=== PATIENT | female | born 1980 | race Hispanic/Latino ===

== ENCOUNTER 2021-09-02 11:17 | Observation (INO) | payer SELFPAY ==
--- OUTSIDE RECORDS SUMMARY | 2021-09-02 11:20 | XMS REPORT | Continuity of Care Document ---
:1980 Author Organization [facility] t Address [address] [place] [id number] Care Team Providers Name Role Phone Unavailable Unavailable Unavailable Problems This patient has no known problems. Allergies, Adverse Reactions, Alerts This patient has no known allergies or adverse reactions. Medications This patient has no known medications. Procedures This patient has no known procedures. Encounters Start End Encounter Admission Attending Care Care Encounter Source Date/Time Date/Time Type Type Clinicians Facility Department ID 2020-08-27 2020-08-27 Outpatient PRIV PRIV [id number] [id number] [facility] 05:13:00 05:13:00 [id number] Medica l Results This patient has no known results.
[2021-09-02] MEDS ORDERED: ACETAMINOPHEN 500 MG TAB ONE ×2 (14:00→22:01)
[2021-09-02 14:04] LABS: Protime INR 1.01
[2021-09-02 14:06] LABS: Absolute Lymphocytes (CBC) 3.7 K/uL (0.7-4.9); Hematocrit 42.5 % (36.0-45.0); Lymphocytes % 35.3 % (15.3-44.8); MPV 8.3 fL (7.6-11.3); RBC Red Blood Cell Count 4.83 M/uL (3.86-4.86)
--- NOTE | 2021-09-02 14:07 | RAD REPORT ---
EXAM DESCRIPTION: CT - Head Brain Wo Cont - 09/02/2021 1:40 pm CLINICAL HISTORY: Headache COMPARISON: None. TECHNIQUE: Computed axial tomography of the head was obtained. IV contrast was not requested. All CT scans are performed using dose optimization technique as appropriate and may include automated exposure control or mA/KV adjustment according to patient size. FINDINGS: An intracranial bleed is not seen . The ventricles are normal in caliber. No significant hypodense areas within the brain No extra-axial fluid collection is noted. Fluid within the sinuses/ mastoids is not seen. IMPRESSION: No acute intracranial abnormality is seen. If patient's symptoms persist MRI of the bra in would be recommended.
[2021-09-02 14:18] LABS: ALT/SGPT 38 U/L (12-78); AST/SGOT 22 U/L (15-37); Albumin 3.7 g/dL (3.4-5.0); Alkaline Phosphatase 110 U/L (45-117); BUN Blood Urea Nitrogen 12 mg/dL (7-18); Bicarbonate 27 mmol/L (21-32); Bilirubin Direct 0.1 mg/dL (0-0.2); Bilirubin Total 0.6 mg/dL (0.2-1.0); Glucose Level 94 mg/dL (74-106); Magnesium 2.3 mg/dL (1.8-2.4); Potassium 3.7 mmol/L (3.5-5.1); Protein, Total 7.6 g/dL (6.4-8.2); Sodium Level 141 mmol/L (136-145)
[2021-09-02] MEDS ORDERED: ASPIRIN 81 MG CHEWABLE TABLET ONE (14:41)
[2021-09-02] MEDS ORDERED: FOLIC ACID 5 MG/ML VIAL ONE (14:42)
--- NOTE | 2021-09-02 15:09 | RAD REPORT ---
EXAM DESCRIPTION: CTHead angio09/02/2021 2:46 pm CLINICAL HISTORY: Slurred speech/headache COMPARISON: None TECHNIQUE: CT angiogram of the head was obtained. 3D MIPS reconstruction performed. All CT scans are performed using dose optimization technique as appropriate and may include automated exposure control or mA/KV adjustment according to patient size. FINDINGS: The basilar, internal carotid, anterior cerebral, middle cerebral and posterior cerebral a rteries are normal caliber. An aneurysm is not seen. origin of the left posterior cerebral artery A significant stenosis is not noted. IMPRESSION: No significant abnormality is displayed
--- NOTE | 2021-09-02 15:09 | RAD REPORT ---
EXAM DESCRIPTION: Unrulypauline Angio09/02/2021 2:46 pm CLINICAL HISTORY: Slurred speech/headache COMPARISON: None TECHNIQUE: 50 cc Isovue 370 was administered intravenously. 3D MIP reconstruction performed All CT scans are performed using dose optimization technique as appropriate and may include automated exposure control or mA/KV adjustment according to patient size. FINDINGS: The common carotid, internal carotid and external carotid arteries bilaterally are normal caliber. Vertebral arteries are codominant. No dissection seen. No significant stenosis IMPRESSION: Unremarkable exam NASCET criteria used. Mild 0-49% stenosis Moderate 50-69% stenosis Severe 70-99% stenosis
--- NOTE | 2021-09-02 15:30 | ER ---
Nurse's Notes [facility] Name: Moe Ren Age: 41 yrs Sex: Female : 1980 Arrival Date: 09/02/2021 Time: 11:20 Bed 24 Private MD: Diagnosis: Unspecified speech disturbances Presentation: 09/02 11:54 Chief complaint: Patient states: On Tuesday states sharp pain to the back of head and vg1 states was trying to say 'get my perfume out of my purse' but stated the words would not come; states words were slurred; states was able to hear the sentence in head but 'it would come out correctly out of my mouth'. States today similar situation happened again. pt c/o headache and nausea; denies blurred vision or weakness. Coronavirus screen: Vaccine status: Patient reports receiving the 2nd dose of the covid vaccine. Client denies travel out of the [place] in the last 14 days. Ebola Screen: Patient negative for fever greater than or equal to 101.5 degrees Fahrenheit, and additional compatible Ebola Virus Disease symptoms. Initial Sepsis Screen: Does the patient meet any 2 criteria? No. Patient's initial sepsis screen is negative. Does the patient have a suspected source of infection? No. Patient's initial sepsis screen is negative. Risk Assessment: Do you want to hurt yourself or someone else? Patient reports no desire to harm self or others. Onset of symptoms was August 30, 2021. 11:54 Method Of Arrival: Ambulatory vg1 11:54 Acuity: SANTOSH 3 vg1 Triage Assessment: 11:59 General: Appears in no apparent distress. comfortable, Behavior is calm, cooperative. vg1 Pain: Complains of pain in head Pain currently is 5 out of 10 on a pain scale. 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 - Social history:: Smoking status: Patient reports the use of cigarette tobacco products, denies chronic smoking, but will smoke occasionally. Screenin:19 Abuse screen: Denies threats or abuse. Denies injuries from another. Nutritional ab2 screening: No deficits noted. Tuberculosis screening: No symptoms or risk factors identified. Fall Risk None identified. Assessment: 15:18 General: Appears in no apparent distress. uncomfortable, Behavior is calm, cooperative, ab2 appropriate for age. Pain: Complains of pain in neck. Neuro: Level of Consciousness is awake, alert, obeys commands, Oriented to person, place, time, situation, Appropriate for age Hot Blaster are equal bilaterally Moves all extremities. Gait is steady, Speech is normal, Facial symmetry appears normal, Intact. Cardiovascular: Reports lightheadedness, Denies chest pain, shortness of breath, Heart tones S1 S2 present Patient's skin is warm and dry. Rhythm is sinus rhythm. Respiratory: Airway is patent Respiratory effort is even, unlabored, Respiratory pattern is regular, symmetrical, Breath sounds are clear bilaterally. GI: No deficits noted. : No deficits noted. No signs and/or symptoms were reported regarding the genitourinary system. EENT: No deficits noted. No signs and/or symptoms were reported regarding the EENT system. Derm: Skin is intact, Skin temperature is warm. 19:25 Reassessment: Patient appears in no apparent distress at this time. Patient is alert, lp1 oriented x 3, equal unlabored respirations, skin warm/dry/pink. Patient aware of pending admission; Given sandwich and juice per request at this time. Neuro: Level of Consciousness is awake, alert, obeys commands, Gait is steady, Speech is normal, Intact. Respiratory: Respiratory effort is even, unlabored. Derm: Skin is pink, warm \T\ dry. Musculoskeletal: No deficits noted. Vital Signs: 11:54 BP 144 / 89; Pulse 74; Resp 16; Temp 97.5; Pulse Ox 99% ; Weight 80.74 kg; Height 5 ft. vg1 5 in. (165.10 cm); Pain 5/10; 15:15 BP 116 / 72; Pulse 63; Resp 16; Pulse Ox 100% on R/A; ab2 19:20 BP 134 / 74; Pulse 61; Resp 16; Temp 98(O); Pulse Ox 99% on R/A; lp1 11:54 Body Mass Index 29.62 (80.74 kg, 165.10 cm) vg1 NIH Stroke Scale Scores: 12:00 NIHSS Score: 0 vg1 13:50 NIHSS Score: 0 cp ED Course: 11:20 Patient arrived in ED. as 11:59 Triage completed. vg1 11:59 Arm band placed on. vg1 12:18 Iain Romo PA is PHCP. cp 12:18 Iain Solomon MD is Attending Physician. cp 13:33 Kingston Xiong is Primary Nurse. ab2 13:41 CT Head Brain wo Cont In Process Unspecified. EDMS 14:48 CT Neck Angio In Process Unspecified. EDMS 14:48 Head angio In Process Unspecified. EDMS 15:19 No provider procedures requiring assistance completed. Inserted saline lock: 20 gauge ab2 in right antecubital area, using aseptic technique. Blood collected. 15:20 Patient has correct armband on for positive identification. Bed in low position. Call ab2 light in reach. Side rails up X2. 15:28 King Trinh is Hospitalizing Provider. cp 19:25 COVID swab sent to lab. lp1 20:07 Patient admitted, IV remains in place. lp1 Administered Medications: 13:57 Drug: Tylenol 1000 mg Route: PO; ab2 14:52 Drug: Aspirin Chewable Tablet 81 mg Route: PO; ab2 14:52 Drug: foLIC Acid 1 mg Route: IVPB; Site: right antecubital; ab2 Outcome: 15:29 Decision to Hospitalize by Provider. cp 20:07 Admitted to ER Hold. [facility]. lp1 20:07 Condition: stable 20:07 Instructed on the need for admit. 04 11:57 Patient left the ED. jd3 NIH Stroke Scale - NIH Stroke Score Date: 09/02/2021 Time: 12:00 Total Score = 0 1a. Level of Consciousness (LOC) - 0(Alert) 1b. Level of Consciousness (LOC) (Month \T\ Age) - 0(Both) 1c. LOC Commands (Open \T\ Closes Eyes/Buckle Sewer Machine) - 0(Both) 2. Best Gaze (Lateral Gaze Paresis) - 0(Normal) 3. Visual Field Loss - 0(No visual loss) 4. Facial Palsy - 0(Normal) 5a. Left Arm: Motor (10-second hold) - 0(No drift) 5b. Right Arm: Motor (10-second hold) - 0(No drift) 6a. Left Leg: Motor (5-second hold - always test supine) - 0(No drift) 6b. Right Leg: Motor (5-second hold - always test supine) - 0(No drift) 7. Limb Ataxia (finger/nose \T\ heel/eller - test with eyes open) - 0(Absent) 8. Sensory Loss (pinprick arms/legs/face) - 0(Normal) 9. Best Language: Aphasia (description/naming/reading) - 0(No aphasia) 10. Dysarthria (speech clarity - read or repeat words) - 0(Normal) 11. Extinction and Inattention (visual/tactile/auditory/spatial/personal) - 0(No abnormality) Initials: vg1 NIH Stroke Scale - NIH Stroke Score Date: 09/02/2021 Time: 13:50 Total Score = 0 1a. Level of Consciousness (LOC) - 0(Alert) 1b. Level of Consciousness (LOC) (Month \T\ Age) - 0(Both) 1c. LOC Commands (Open \T\ Closes Eyes/Buckle Sewer Machine) - 0(Both) 2. Best Gaze (Lateral Gaze Paresis) - 0(Normal) 3. Visual Field Loss - 0(No visual loss) 4. Facial Palsy - 0(Normal) 5a. Left Arm: Motor (10-second hold) - 0(No drift) 5b. Right Arm: Motor (10-second hold) - 0(No drift) 6a. Left Leg: Motor (5-second hold - always test supine) - 0(No drift) 6b. Right Leg: Motor (5-second hold - always test supine) - 0(No drift) 7. Limb Ataxia (finger/nose \T\ heel/eller - test with eyes open) - 0(Absent) 8. Sensory Loss (pinprick arms/legs/face) - 0(Normal) 9. Best Language: Aphasia (description/naming/reading) - 0(No aphasia) 10. Dysarthria (speech clarity - read or repeat words) - 0(Normal) 11. Extinction and Inattention (visual/tactile/auditory/spatial/personal) - 0(No abnormality) Initials: cp Signatures: Dispatcher [employer] EDDanica Guo Laura, RN RN lp1 Iain Romo PA PA cp Davies, Jonathon, RN RN jViry Rivera RN RN vg1 Kingston Xiong
--- NOTE | 2021-09-02 15:30 | EDPHYS ---
Physician Documentation [facility] Name: Moe Ren Age: 41 yrs Sex: Female : 1980 Arrival Date: 09/02/2021 Time: 11:20 Bed 24 Private MD: FLOYD Physician Iain Solomon HPI: 09/02 13:40 This 41 yrs old Female presents to ER via Ambulatory with complaints of cp Dizziness, Blood Pressure Problem. 13:40 The patient's problem is reported as dysphasia, slurred speech, incoherent speech. cp 13:40 Onset: The symptoms/episode began/occurred this past weekend on Tuesday. cp 13:40 Duration: The episodes are intermittent. Patient's baseline: Neuro: alert and fully cp oriented, Motor: no deficits, Ambulation: walks without assistance, Speech: normal. 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 - Social history:: Smoking status: Patient reports the use of cigarette tobacco products, denies chronic smoking, but will smoke occasionally. ROS: 13:45 Constitutional: Negative for body aches, chills, fever, poor PO intake. cp 13:45 Eyes: Negative for injury, pain, redness, and discharge. cp 13:45 ENT: Negative for drainage from ear(s), ear pain, sore throat, difficulty swallowing, difficulty handling secretions. 13:45 Cardiovascular: Negative for chest pain, palpitations. 13:45 Respiratory: Negative for cough, shortness of breath, wheezing. 13:45 Abdomen/GI: Negative for abdominal pain, nausea, vomiting, and diarrhea. 13:45 : Negative for urinary symptoms. 13:45 Neuro: Positive for headache, speech changes, Negative for altered mental status, syncope, weakness. 13:45 All other systems are negative. Exam: 13:50 Constitutional: The patient appears in no acute distress, alert, awake, cp non-diaphoretic, non-toxic, well developed, well nourished. 13:50 Head/Face: Normocephalic, atraumatic. cp 13:50 Eyes: Periorbital structures: appear normal, Pupils: equal, round, and reactive to light and accomodation, Extraocular movements: intact throughout, Conjunctiva: normal, no exudate, no injection, Sclera: no appreciated abnormality, Lids and lashes: appear normal, bilaterally. 13:50 ENT: External ear(s): are unremarkable, Nose: is normal, Mouth: Lips: moist, Oral mucosa: pink and intact, moist, Posterior pharynx: Airway: no evidence of obstruction, patent. 13:50 Neck: ROM/movement: is normal, is supple, without pain, no range of motions limitations. 13:50 Chest/axilla: Inspection: normal. 13:50 Cardiovascular: Rate: normal, Rhythm: regular, Edema: is not appreciated, JVD: is not appreciated. 13:50 Respiratory: the patient does not display signs of respiratory distress, Respirations: normal, no use of accessory muscles, no retractions, labored breathing, is not present, Breath sounds: are clear throughout, no decreased breath sounds, no stridor, no wheezing. 13:50 Abdomen/GI: Exam negative for discomfort, distension, guarding, Inspection: abdomen appears normal. 13:50 Neuro: Orientation: to person, place \\T\\ time. Mentation: is normal, Cerebellar function: is grossly normal, Motor: moves all fours, strength is normal, Sensation: is normal. 14:20 Radiologist reports: no acute findings cp Vital Signs: 11:54 BP 144 / 89; Pulse 74; Resp 16; Temp 97.5; Pulse Ox 99% ; Weight 80.74 kg; Height 5 ft. vg1 5 in. (165.10 cm); Pain 5/10; 15:15 BP 116 / 72; Pulse 63; Resp 16; Pulse Ox 100% on R/A; ab2 19:20 BP 134 / 74; Pulse 61; Resp 16; Temp 98(O); Pulse Ox 99% on R/A; lp1 11:54 Body Mass Index 29.62 (80.74 kg, 165.10 cm) vg1 NIH Stroke Scale Scores: 12:00 NIHSS Score: 0 vg1 13:50 NIHSS Score: 0 cp MDM: 13:07 Patient medically screened. cp 09/02 13:29 Order name: Basic Metabolic Panel; Complete Time: 14:28 cp 09/02 14:28 Interpretation: Normal except: CL 109. cp 09/02 13:29 Order name: CBC with Diff; Complete Time: 14:09 cp 09/02 14:09 Interpretation: Normal except: MCV 88.0; EOSINOPHIL % 5.0. cp 09/02 13:29 Order name: LFT's; Complete Time: 14:28 cp 09/02 14:28 Interpretation: Normal except: GLOB 3.9; A/G 0.9. cp 09/02 13:29 Order name: Magnesium; Complete Time: 14:28 cp 09/02 13:29 Order name: PT-INR; Complete Time: 14:09 cp 09/02 17:38 Order name: COVID-19 SARS RT PCR (Document "Date of Onset" if Symptomatic) bd 09/02 13:30 Order name: CT Head Brain wo Cont; Complete Time: 14:09 cp 09/02 14:09 Interpretation: Report reviewed. cp 09/03 03:43 Order name: CBC with Automated Diff EDGA 09/03 03:53 Order name: Sedimentation Rate, [place]gren EDMS 09/03 04:00 Order name: Basic Metabolic Panel EDMS 09/03 04:00 Order name: Lipid Profile EDMS 09/03 04:00 Order name: Thyroid Stimulating Hormone EDMS 09/03 04:16 Order name: T4 Free EDGA 09/02 13:29 Order name: EKG; Complete Time: 13:30 cp 09/02 13:29 Order name: Cardiac monitoring; Complete Time: 13:55 cp 09/02 13:29 Order name: EKG - Nurse/Tech; Complete Time: 13:55 cp 09/02 13:29 Order name: IV Saline Lock; Complete Time: 13:55 cp 09/02 13:29 Order name: Labs collected and sent; Complete Time: 13:55 cp 09/02 13:29 Order name: O2 Per Protocol; Complete Time: 13:55 cp 09/02 13:29 Order name: O2 Sat Monitoring; Complete Time: 13:55 cp 09/02 14:32 Order name: CT Neck Angio; Complete Time: 15:13 cp 09/02 15:13 Interpretation: Report reviewed. cp 09/02 14:36 Order name: Head angio; Complete Time: 15:13 EDGA 09/02 15:13 Interpretation: Report reviewed. 09/03 09:20 Order name: MRI EDMS 09/03 09:21 Order name: MRI EDMS 09/03 09:22 Order name: MRI EDMS Administered Medications: 13:57 Drug: Tylenol 1000 mg Route: PO; ab2 14:52 Drug: Aspirin Chewable Tablet 81 mg Route: PO; ab2 14:52 Drug: foLIC Acid 1 mg Route: IVPB; Site: right antecubital; ab2 Disposition: 09/04 07:53 Co-signature as Attending Physician, Iain Solomon MD I agree with the assessment and esequiel plan of care. Disposition Summary: 09/02/21 15:29 Hospitalization Ordered Hospitalization Status: Observation cp Provider: King Trinh cp Condition: Stable cp Problem: new cp Symptoms: are resolved cp Bed/Room Type: Standard cp Location: [facility] ER HOLD(09/02/21 21:54) 1 Room Assignment: ERHOLD-(09/02/21 21:54) eb1 Diagnosis - Unspecified speech disturbances cp Discharge Instructions: - Discharge Summary Sheet jd3 Forms: - Medication Reconciliation Form cp - SBAR form cp - Work release form jd3 NIH Stroke Scale - NIH Stroke Score Date: 09/02/2021 Time: 12:00 Total Score = 0 1a. Level of Consciousness (LOC) - 0(Alert) 1b. Level of Consciousness (LOC) (Month \\T\\ Age) - 0(Both) 1c. LOC Commands (Open \\T\\ Closes Eyes/Solar Panel Technician) - 0(Both) 2. Best Gaze (Lateral Gaze Paresis) - 0(Normal) 3. Visual Field Loss - 0(No visual loss) 4. Facial Palsy - 0(Normal) 5a. Left Arm: Motor (10-second hold) - 0(No drift) 5b. Right Arm: Motor (10-second hold) - 0(No drift) 6a. Left Leg: Motor (5-second hold - always test supine) - 0(No drift) 6b. Right Leg: Motor (5-second hold - always test supine) - 0(No drift) 7. Limb Ataxia (finger/nose \\T\\ heel/eller - test with eyes open) - 0(Absent) 8. Sensory Loss (pinprick arms/legs/face) - 0(Normal) 9. Best Language: Aphasia (description/naming/reading) - 0(No aphasia) 10. Dysarthria (speech clarity - read or repeat words) - 0(Normal) 11. Extinction and Inattention (visual/tactile/auditory/spatial/personal) - 0(No abnormality) Initials: vg1 NIH Stroke Scale - NIH Stroke Score Date: 09/02/2021 Time: 13:50 Total Score = 0 1a. Level of Consciousness (LOC) - 0(Alert) 1b. Level of Consciousness (LOC) (Month \\T\\ Age) - 0(Both) 1c. LOC Commands (Open \\T\\ Closes Eyes/Solar Panel Technician) - 0(Both) 2. Best Gaze (Lateral Gaze Paresis) - 0(Normal) 3. Visual Field Loss - 0(No visual loss) 4. Facial Palsy - 0(Normal) 5a. Left Arm: Motor (10-second hold) - 0(No drift) 5b. Right Arm: Motor (10-second hold) - 0(No drift) 6a. Left Leg: Motor (5-second hold - always test supine) - 0(No drift) 6b. Right Leg: Motor (5-second hold - always test supine) - 0(No drift) 7. Limb Ataxia (finger/nose \\T\\ heel/eller - test with eyes open) - 0(Absent) 8. Sensory Loss (pinprick arms/legs/face) - 0(Normal) 9. Best Language: Aphasia (description/naming/reading) - 0(No aphasia) 10. Dysarthria (speech clarity - read or repeat words) - 0(Normal) 11. Extinction and Inattention (visual/tactile/auditory/spatial/personal) - 0(No abnormality) Initials: cp Signatures: Dispatcher [employer] EDGA Iain Solomon MD MD cha Page, Corey, PA PA cp Luzmaria Hughes, RN RN eb1 Viry Carson, RN RN vg1 Kingston Xiong Corrections: (The following items were deleted from the chart) 09/02 14:34 14:33 Head Brain W Cont+CT.RAD.MARLEYZ ordered. EDGA EDGA : 15:29 Telemetry/MedSurg (observation) cp eb1 21:54 15:29 cp eb1 :54 21:54 205 eb eb1
--- NOTE | 2021-09-02 17:19 | P.HP ---
Certification for Inpatient Patient admitted to: Observation With expected LOS: <2 Midnights Practitioner: I am a practitioner with admitting privileges, knowledge of patient current condition, hospital course, and medical plan of care. Services: Services provided to patient in accordance with Admission requirements found in Title 42 Section 412.3 of the Code of Federal Regulations Patient History Date of Service: 09/02/21 Reason for admission: Transient inability to speak History of Present Illness: 41-year-old woman, non-smoker, no other known past medical history presented to the emergency department due to intermittent difficulty with verbalizing words. Symptoms started 3 days ago, had 2 episodes where she knew what she wanted to say but she could not say it. Symptoms preceded by a bout of headache. Patient stated she was stressed out before the onset of her symptoms. She also reports an episode of vertigo prior to the aphasia. Work-up in the emergency department is unremarkable. CT head, CTA head and neck all unremarkable. Patient's symptoms could be related to TIA. Neurology was contacted by the ED provider who recommended hospitalization for an MRI and other risk factor assessment. Allergies No Known Allergies Allergy (Unverified 03/01/17 05:51) - Past Medical/Surgical History -: Anemia -: Uterine cancer -: Hysterectomy - Family History Father -: Stroke - Social History Smoking Status: Current some day smoker Alcohol use: No CD- Drugs: No Place of Residence: Home Review of Systems Other: Except as documented, all other systems reviewed and negative. Physical Examination - Physical Exam General: Alert, In no apparent distress, Oriented x3 HEENT: Atraumatic, Normocephalic, PERRLA, Mucous membr. moist/pink, EOMI, Sclera e nonicteric Neck: Supple, 2+ carotid pulse no bruit, JVD not distended, No Thyromegaly Respiratory: Clear to auscultation bilaterally, Normal air movement Cardiovascular: No edema, Regular rate/rhythm, Normal S1 S2, No murmurs Capillary refill: <2 Seconds Gastrointestinal: Normal bowel sounds, Soft and benign, Non-distended, No tenderness Musculoskeletal: No swelling, No tenderness Integumentary: No rashes, No erythema, No cyanosis Neurological: Normal speech, Normal strength at 5/5 x4 extr, Cranial nerves 3-12 intact Lymphatics: No axilla or inguinal lymphadenopathy - Studies Laboratory Data (last 24 hrs) 09/02/21 13:45: PT 11.1, INR 1.01 09/02/21 13:45: WBC 10.4, Hgb 14.8, Hct 42.5, Plt Count 279 09/02/21 13:45: Sodium 141, Potassium 3.7, BUN 12, Creatinine 0.60, Glucose 94, Magnesium 2.3, Total Bilirubin 0.6, AST 22, ALT 38, Alkaline Phosphatase 110 Assessment and Plan - Problems (Diagnosis) (1) TIA (transient ischemic attack) Current Visit: Yes Status: Acute (2) Vertigo Current Visit: Yes Status: Acute - Plan Place under observation Start aspirin Check lipid profile Obtain MRI of the brain. Obtain echocardiogram. Consult to neurology Speech therapy consult. - Advance Directives Does patient have a Living Will: No Does patient have a Durable POA for Healthcare: No
[2021-09-02] MEDS ORDERED: NA CHLORIDE 0.9% 1,000 ML IV SCH (20:47)
[2021-09-02] MEDS ORDERED: NA CHLORIDE 0.9% 1,000 ML ONE (21:11)
[2021-09-02] MEDS ORDERED: ACETAMINOPHEN 500 MG TAB PO PRN (21:51)
[2021-09-02 22:26] VITALS: BMI 29.2
[2021-09-03 03:39] LABS: Hematocrit 38.7 % (36.0-45.0); Lymphocytes % 40.8 % (15.3-44.8); MPV 8.4 fL (7.6-11.3); RBC Red Blood Cell Count 4.42 M/uL (3.86-4.86)
[2021-09-03 03:58] LABS: BUN Blood Urea Nitrogen 12 mg/dL (7-18); Bicarbonate 25 mmol/L (21-32); Glucose Level 129 mg/dL (74-106); HDL Cholesterol 35 mg/dL (40-60); LDL Cholesterol, Calculated 38 mg/dL (<130); Potassium 3.5 mmol/L (3.5-5.1); Sodium Level 141 mmol/L (136-145)
[2021-09-03 04:43] VITALS: TEMP 98.1
[2021-09-03 08:21] VITALS: BP 128/66; O2SAT 99
[2021-09-03] MEDS ORDERED: ASPIRIN EC 81 MG TAB PO ONE (08:44)
[2021-09-03] MEDS ORDERED: POTASSIUM CL SA 10 MEQ TAB PO ONE ×2 (08:45→09:00)
[2021-09-03] MEDS ORDERED: ASPIRIN EC 81 MG TAB PO SCH (09:00)
--- NOTE | 2021-09-03 09:19 | RAD REPORT ---
EXAM DESCRIPTION: MRI - Brain W/Wo Cont - 09/03/2021 8:10 am CLINICAL HISTORY: TIA Headache, drowsiness, CVA symptomology COMPARISON: MRA Head Wo Cont dated 09/03/2021 TECHNIQUE: Multi-sequence, multiplanar MR imaging of the brain was performed with contrast. FINDINGS: No intracranial hemorrhage, hydrocephalus, or extra-axial fluid collection. No edema or sh ift of midline structures. No intracranial mass. DWI is negative for acute CVA. The midline structures are normally formed. Mastoid air cells and paranasal sinuses are clear. Post-contrast images show no abnormal enhancement to suggest tumor or infection. IMPRESSION: No acute or concerning intracranial abnormalities. No pathologic post-contrast enhancement suspected.
--- NOTE | 2021-09-03 09:21 | RAD REPORT ---
EXAM DESCRIPTION: MRI - MRA Head Wo Cont - 09/03/2021 8:10 am CLINICAL HISTORY: TIA CVA COMPARISON: Head angio dated 09/02/2021 FINDINGS: 3D noncontrast [id number] MR angiography of the [place]inson of [place] was performed. No aneurysm, flow-limiting stenosis or vascular malformation is seen. Forward flow seen in codominant vertebral arteries. The visualized dural venous sinuses appear patent. IMPRESSION: No significant flow abnormality of the [place] of [place] is identified.
--- NOTE | 2021-09-03 09:22 | RAD REPORT ---
EXAM DESCRIPTION: MRI - MRA Neck W/Wo Cont - 09/03/2021 8:10 am CLINICAL HISTORY: TIA Headache, drowsiness, CVA symptomology COMPARISON: No comparisons FINDINGS: Contrast enhance 2D [id number] MR angiography of the neck vessels was performed. A left aortic arch is noted. Normal great vessel origin pattern is seen. Both subclavian arteries and common carotid arteries are widely patent. Both internal carotid arterie s show no significant stenosis. Antegrade flow is seen codominant vertebral arteries. IMPRESSION: No significant flow abnormality of the neck vessels.
--- NOTE | 2021-09-03 11:16 | P.DS ---
Admission Date: 09/02/21 Discharge Date: 09/03/21 Disposition: D/C Home Medical Screening Onl Discharge Condition: GOOD Reason for Admission: Transient inability to speak - Problems (1) TIA (transient ischemic attack) Status: Acute (2) Vertigo Status: Acute Brief History of Present Illness: 41-year-old woman, non-smoker, no other known past medical history presented to the emergency department due to intermittent difficulty with verbalizing words. Symptoms started 3 days ago, had 2 episodes where she knew what she wanted to say but she could not say it. Symptoms preceded by a bout of headache. Patient stated she was stressed out before the onset of her symptoms. She also reports an episode of vertigo prior to the aphasia. Work-up in the emergency department is unremarkable. CT head, CTA head and neck all unremarkable. Patient's symptoms could be related to TIA. Neurology was contacted by the ED provider who recommended hospitalization for an MRI and other risk factor assessment. Hospital Course: Patient placed under observation on the medical floor. MRI of the brain was done which was negative for acute CVA. MRA of head and neck also unremarkable. Patient's symptoms could be related to TIA. Lipid profile showed normal LDL and cholesterol level but triglyceride elevated. Blood pressure within normal limits. Patient deemed stable for discharge. She is discharged with baby aspirin daily and Tricor for hypertriglyceridemia. Vital Signs/Physical Exam: Temp Pulse Resp BP Pulse Ox 98.1 F 58 16 128/66 97 09/03/21 04:00 09/03/21 08:15 09/03/21 08:15 09/03/21 08:15 09/03/21 08:15 General: Alert, In no apparent distress, Oriented x3 HEENT: Mucous membr. moist/pink Neck: JVD not distended Respiratory: Clear to auscultation bilaterally, Crackles/rales Cardiovascular: No edema, Regular rate/rhythm Gastrointestinal: Soft and benign, Non-distended Musculoskeletal: No swelling Integumentary: No rashes Neurological: Normal speech, Normal strength at 5/5 x4 extr Laboratory Data at Discharge: WBC 9.8 K/uL (4.3-10.9) 09/03/21 03:05 Hgb 13.6 g/dL (12.0-15.0) 09/03/21 03:05 Hct 38.7 % (36.0-45.0) 09/03/21 03:05 Plt Count 266 K/uL (152-406) 09/03/21 03:05 PT 11.1 SECONDS (9.5-12.5) 09/02/21 13:45 INR 1.01 09/02/21 13:45 Sodium 141 mmol/L (136-145) 09/03/21 03:05 Potassium 3.5 mmol/L (3.5-5.1) 09/03/21 03:05 BUN 12 mg/dL (7-18) 09/03/21 03:05 Creatinine 0.62 mg/dL (0.55-1.3) 09/03/21 03:05 Glucose 129 mg/dL (74-106) H 09/03/21 03:05 Magnesium 2.3 mg/dL (1.8-2.4) 09/02/21 13:45 Total Bilirubin 0.6 mg/dL (0.2-1.0) 09/02/21 13:45 AST 22 U/L (15-37) 09/02/21 13:45 ALT 38 U/L (12-78) 09/02/21 13:45 Alkaline Phosphatase 110 U/L (45-117) 09/02/21 13:45 Triglycerides 274 mg/dL (<150) H 09/03/21 03:05 Cholesterol 128 mg/dL (<200) 09/03/21 03:05 HDL Cholesterol 35 mg/dL (40-60) L 09/03/21 03:05 Cholesterol/HDL Ratio 3.66 09/03/21 03:05 Home Medications: Ascorbate Calcium [Vitamin C] 500 mg PO DAILY 09/02/21 Ferrous Sulfate [Iron] 325 mg PO DAILY 09/02/21 Ibuprofen 2 tab PO DAILY 09/02/21 Aspirin [Aspirin EC 81 MG] 81 mg PO DAILY #30 tablet. 09/03/21 Fenofibrate [Tricor] 145 mg PO DAILY #30 tab 09/03/21 New Medications: Aspirin [Aspirin EC 81 MG] 81 mg PO DAILY #30 tablet. Fenofibrate [Tricor] 145 mg PO DAILY #30 tab Followup: NONE,NONE [Primary Care Provider] -
== END 2021-09-03 11:45 | disposition home or self-care (01) ==
LOC: ER 11:17 → ERHOLD 17:09
PROVIDERS: ADMIT Internal Medicine; ATTEND Internal Medicine
DX: G45.9 Transient cerebral ischemic attack, unspecified (principal); R42 Dizziness and giddiness; E78.1 Pure hyperglyceridemia; D64.9 Anemia, unspecified; R29.700 NIHSS score 0; F17.210 Nicotine dependence, cigarettes, uncomplicated; Z20.822 Contact with and (suspected) exposure to COVID-19; Z85.42 Personal history of malignant neoplasm of other parts of uterus; Z90.710 Acquired absence of both cervix and uterus; Z82.3 Family history of stroke
CPT/HCPCS: 36415; 70450; 70496; 70498; 70544; 70549; 70553; 80048; 80061; 80076; 83735; 84439; 84443; 85025; 85610; 85652; 93005; 96374; 99285; A9577; G0378; J7030; Q9967; U0003

== ENCOUNTER 2023-10-18 11:08 | Emergency (ER) | payer SELFPAY ==
[2023-10-18] MEDS ORDERED: NA CHLORIDE 0.9% 1,000 ML ONE (11:50)
[2023-10-18] MEDS ORDERED: ASPIRIN 81 MG CHEWABLE TABLET ONE (11:50)
[2023-10-18 11:52] LABS: Absolute Eosinophils 0.3 K/uL (0-0.5); Absolute Lymphocytes (CBC) 3.2 K/uL (0.7-4.9); Absolute Monocytes 0.6 K/uL (0.1-1.3); Absolute Neutrophil 5.5 K/uL (1.8-8.0); Basophils % 0.5 % (0-1.3); Eosinophils % 2.7 % (0-4.4); Hematocrit 41.2 % (36.0-45.0); Hemoglobin 13.7 g/dL (12.0-15.0); Lymphocytes % 32.9 % (15.3-44.8); MCH 29.8 pg (27.0-35.0); MCHC 33.3 g/dL (32.0-36.0); MCV 89.3 fL (80-100); MPV 8.5 fL (7.6-11.3); Monocytes % 6.6 % (3.3-12.3); Neutrophils % 57.3 % (41.7-73.7); Platelets 287 thou/uL (152-406); RBC Red Blood Cell Count 4.61 M/uL (3.86-4.86); Red Cell Distribution Width 12.9 % (12.1-15.2)
[2023-10-18 11:56] LABS: PT Prothrombin Time 10.8 SECONDS (9.5-12.5); Protime INR 0.98
[2023-10-18 12:11] LABS: Anion Gap 9.5 mEq/L (5.0-15.0); Potassium 3.5 mEq/L (3.5-5.1); Troponin High Sensitivity 4.1 pg/mL (<58.9)
--- NOTE | 2023-10-18 12:39 | RAD REPORT ---
EXAM DESCRIPTION: RADChest Single View10/18/2023 12:21 pm CLINICAL HISTORY: CHEST PAIN COMPARISON: Chest Single View dated 12/02/2022 TECHNIQUE: Portable AP view of the chest. FINDINGS: The lungs are clear. No pneumothorax or effusion. The cardiomediastinal contours are unre markable. IMPRESSION: No acute cardiopulmonary process.
--- NOTE | 2023-10-18 13:19 | ER ---
Nurse's Notes [facility] Name: Moe Ren Age: 43 yrs Sex: Female : 1980 Arrival Date: 10/18/2023 Time: 11:08 Bed DX2 Private MD: Diagnosis: Chest pain, unspecified Presentation: 10/17 11:18 Chief complaint: Patient states: "I started having right sided CP yesterday evening. It mb9 hasn't gone away and I feel slightly SOB. It's like a throbbing/stabbing pain." EKG done in triage. Coronavirus screen: At this time, the client does not indicate any symptoms associated with coronavirus-19. Ebola Screen: No symptoms or risks identified at this time. Initial Sepsis Screen: Does the patient meet any 2 criteria? No. Patient's initial sepsis screen is negative. Does the patient have a suspected source of infection? No. Patient's initial sepsis screen is negative. Risk Assessment: Do you want to hurt yourself or someone else? Patient reports no desire to harm self or others. Onset of symptoms was October 18, 2023. 11:18 Method Of Arrival: Ambulatory mb9 11:18 Acuity: SANTOSH 2 mb9 Triage Assessment: 11:20 General: Appears in no apparent distress. Behavior is calm, cooperative, appropriate mb9 for age. Pain: Complains of pain in chest Pain does not radiate. Pain currently is 2 out of 10 on a pain scale. Quality of pain is described as throbbing. EENT: No signs and/or symptoms were reported regarding the EENT system. Neuro: Rayo Agitation-Sedation Scale (RASS): 0 - Alert and Calm Level of Consciousness is awake, alert, obeys commands, Oriented to person, place, time, situation, Appropriate for age. Cardiovascular: Reports chest pain, shortness of breath, Heart tones S1 S2 present Patient's skin is warm and dry. Respiratory: Airway is patent Respiratory effort is even, unlabored, Respiratory pattern is regular, symmetrical. GI: No signs and/or symptoms were reported involving the gastrointestinal system. : No signs and/or symptoms were reported regarding the genitourinary system. Derm: Skin is pink, warm \\T\\ dry. Musculoskeletal: Range of motion: intact in all extremities. Historical: - Allergies: 11:19 No Known Allergies; mb9 - Home Meds: 11:19 None [Active]; mb9 - PMHx: 11:19 Anemia; uterine cancer; mb9 - PSHx: 11:19 hysterectomy; mb9 - Immunization history:: Adult Immunizations up to date. - Infectious Disease History:: Denies. - Social history:: Smoking status: Patient denies any tobacco usage or history of. - Family history:: not pertinent. Screenin:30 [facility] ED Fall Risk Assessment (Adult) History of falling in the last 3 months, as6 including since admission No falls in past 3 months (0 pts) Confusion or Disorientation No (0 pts) Intoxicated or Sedated No (0 pts) Impaired Gait No (0 pts) Mobility Assist Device Used No (0 pt) Altered Elimination No (0 pt) Score/Fall Risk Level 0 - 2 = Low Risk Oriented to surroundings, Maintained a safe environment, Educated pt \\T\\ family on fall prevention, incl call for assistance when getting out of bed, Assessed \\T\\ reinforced patient's understanding of fall precautions. Abuse screen: Denies threats or abuse. Denies injuries from another. Nutritional screening: No deficits noted. Tuberculosis screening: No symptoms or risk factors identified. Assessment: 13:31 Reassessment: Patient appears in no apparent distress at this time. Patient and/or as6 family updated on plan of care and expected duration. Pain level reassessed. Patient is alert, oriented x 3, equal unlabored respirations, skin warm/dry/pink. Vital Signs: 11:18 BP 143 / 69; Pulse 68; Resp 18; Temp 98.2; Pulse Ox 100% on R/A; Weight 82.55 kg; mb9 Height 5 ft. 5 in. ; Pain 2/10; 13:30 BP 121 / 62; Pulse 53; Resp 16; Pulse Ox 97% ; as6 11:18 Body Mass Index 30.29 (82.55 kg, 165.1 cm) mb9 11:18 Pain Scale: Adult mb9 ED Course: 11:13 Patient arrived in ED. im 11:15 EKG completed in triage. Results shown to MD. mb9 11:15 Arm band placed on. mb9 11:18 EKG done, by ED staff, reviewed by Iain Solomon MD. mb9 11:19 Triage completed. mb9 11:28 Iain Solomon MD is Attending Physician. [facility] 11:41 BNP Sent. bc6 11:41 PT-INR Sent. bc6 11:41 Basic Metabolic Panel Sent. bc6 11:41 CBC with Diff Sent. bc6 11:41 Troponin HS Sent. bc6 11:42 Initial lab(s) drawn, by mt, sent to lab. Inserted saline lock: 22 gauge in left bc6 forearm, using aseptic technique. Blood collected. 12:23 XRAY Chest (1 view) In Process Unspecified. EDUT 13:19 Yazan Arthur MD is Referral Physician. [facility] 13:31 No provider procedures requiring assistance completed. IV discontinued, intact, as6 bleeding controlled, No redness/swelling at site. Pressure dressing applied. 13:31 Patient has correct armband on for positive identification. Bed in low position. Call as6 light in reach. Provided Education on: follow up. Administered Medications: 11:56 Drug: Aspirin PO Chewable Tablet 162 mg PO once Route: PO; as6 13:32 Follow up: Response: No adverse reaction as6 11:56 Drug: NS 0.9% IV 1000 ml IV at 125 ml/hr continuous Route: IV; Rate: 125 ml/hr; Site: as6 right forearm; 13:32 Follow up: Response: No adverse reaction; IV Status: Order to discontinue infusion; IV as6 Intake: 200ml Medication: 13:31 VIS not applicable for this client. as6 Intake: 13:32 IV: 200ml; Total: 200ml. as6 Outcome: 13:19 Discharge ordered by . [facility] 13:31 Discharged to home ambulatory, as6 13:31 Condition: stable 13:31 Discharge instructions given to patient, Instructed on discharge instructions, follow up and referral plans. medication usage, Demonstrated understanding of instructions, follow-up care, medications, Prescriptions given X 1, 13:32 Patient left the ED. as6 Signatures: Dispatcher [employer] EDUT Iain Solomon MD MD cha Slawson, Ashby RN RN as6 Monique Escalante RN RN mb9 Misty Carey 6 Laxmi Guallpa
--- NOTE | 2023-10-18 13:19 | EDPHYS ---
Physician Documentation [facility] Name: Moe Ren Age: 43 yrs Sex: Female : 1980 Arrival Date: 10/18/2023 Time: 11:08 Bed DX2 Private MD: ED Physician Iain Solomon HPI: 10/17 12:35 This 43 yrs old Female presents to ER via Ambulatory with complaints of Chest esequiel Pain. 12:35 The patient or guardian reports chest pain that is located primarily in the substernal esequiel area, anterior chest wall, right. Onset: yesterday. The pain does not radiate. Associated signs and symptoms: The patient has no apparent associated signs or symptoms. The chest pain is described as aching. Duration: The patient or guardian reports multiple episodes, with no pattern. Severity of pain: At its worst the pain was mild in the emergency department the pain is unchanged. The patient has not experienced similar symptoms in the past. Historical: - Allergies: 11:19 No Known Allergies; mb9 - Home Meds: 11:19 None [Active]; mb9 - PMHx: 11:19 Anemia; uterine cancer; mb9 - PSHx: 11:19 hysterectomy; mb9 - Immunization history:: Adult Immunizations up to date. - Infectious Disease History:: Denies. - Social history:: Smoking status: Patient denies any tobacco usage or history of. - Family history:: not pertinent. ROS: 12:35 Constitutional: Negative for fever, chills, and weight loss, Eyes: Negative for injury, esequiel pain, redness, and discharge, ENT: Negative for injury, pain, and discharge, Neck: Negative for injury, pain, and swelling, Respiratory: Negative for shortness of breath, cough, wheezing, and pleuritic chest pain, Abdomen/GI: Negative for abdominal pain, nausea, vomiting, diarrhea, and constipation, Back: Negative for injury and pain, : Negative for injury, bleeding, discharge, and swelling, MS/Extremity: Negative for injury and deformity, Skin: Negative for injury, rash, and discoloration, Neuro: Negative for headache, weakness, numbness, tingling, and seizure, Psych: Negative for depression, anxiety, suicide ideation, homicidal ideation, and hallucinations, Allergy/Immunology: Negative for hives, rash, and allergies, Endocrine: Negative for neck swelling, polydipsia, polyuria, polyphagia, and marked weight changes, Hematologic/Lymphatic: Negative for swollen nodes, abnormal bleeding, and unusual bruising, 12:35 Cardiovascular: Positive for chest pain, of the chest, 12:35 MS/extremity: Negative for acute changes, Exam: 12:35 Constitutional: This is a well developed, well nourished patient who is awake, alert, esequiel and in no acute distress. Head/Face: Normocephalic, atraumatic. Eyes: Pupils equal round and reactive to light, extra-ocular motions intact. Lids and lashes normal. Conjunctiva and sclera are non-icteric and not injected. Cornea within normal limits. Periorbital areas with no swelling, redness, or edema. ENT: Nares patent. No nasal discharge, no septal abnormalities noted. Tympanic membranes are normal and external auditory canals are clear. Oropharynx with no redness, swelling, or masses, exudates, or evidence of obstruction, uvula midline. Mucous membranes moist. Neck: Trachea midline, no thyromegaly or masses palpated, and no cervical lymphadenopathy. Supple, full range of motion without nuchal rigidity, or vertebral point tenderness. No Meningismus. Chest/axilla: Normal chest wall appearance and motion. Nontender with no deformity. No lesions are appreciated. Cardiovascular: Regular rate and rhythm with a normal S1 and S2. No gallops, murmurs, or rubs. Normal PMI, no JVD. No pulse deficits. Respiratory: Lungs have equal breath sounds bilaterally, clear to auscultation and percussion. No rales, rhonchi or wheezes noted. No increased work of breathing, no retractions or nasal flaring. Abdomen/GI: Soft, non-tender, with normal bowel sounds. No distension or tympany. No guarding or rebound. No evidence of tenderness throughout. Back: No spinal tenderness. No costovertebral tenderness. Full range of motion. Female : Normal external genitalia. Skin: Warm, dry with normal turgor. Normal color with no rashes, no lesions, and no evidence of cellulitis. MS/ Extremity: Pulses equal, no cyanosis. Neurovascular intact. Full, normal range of motion. Neuro: Awake and alert, GCS 15, oriented to person, place, time, and situation. Cranial nerves II-XII grossly intact. Motor strength 5/5 in all extremities. Sensory grossly intact. Cerebellar exam normal. Normal gait. Psych: Awake, alert, with orientation to person, place and time. Behavior, mood, and affect are within normal limits. 12:35 ECG was reviewed by the Attending Physician. 12:35 Musculoskeletal/extremity: DVT Exam: No signs of deep vein thrombosis. no pain, no swelling, no tenderness, negative Homans' sign noted on exam, no appreciated bluish discoloration, no erythema, no increased warmth, Vital Signs: 11:18 BP 143 / 69; Pulse 68; Resp 18; Temp 98.2; Pulse Ox 100% on R/A; Weight 82.55 kg; mb9 Height 5 ft. 5 in. ; Pain 2/10; 13:30 BP 121 / 62; Pulse 53; Resp 16; Pulse Ox 97% ; as6 11:18 Body Mass Index 30.29 (82.55 kg, 165.1 cm) mb9 11:18 Pain Scale: Adult mb9 MDM: 11:29 Patient medically screened. esequiel 12:39 Differential diagnosis: abnormal EKG, acute myocardial infarction, acute pericarditis, esequiel chest wall pain, cholecystitis, Cholelithiasis esophagitis, gastroesophageal reflux disease (GERD), hiatal hernia, pancreatitis, peptic ulcer disease, pericarditis, pneumonia, pulmonary embolus, stable angina, thoracic aortic disection, unstable angina. HEART Score: History: Slightly Suspicious (0), ECG: Normal (0), Age: < or = 45 years (0), Risk Factors: 1 or 2 risk factors (1), [Obesity] Troponin: < or = 1 x Normal Limit (0), Total Score = 1. The patient was given aspirin in the Emergency Department. Data reviewed: vital signs, nurses notes, lab test result(s), EKG, radiologic studies, plain films. Consideration of Admission/Observation Escalation of care including admission/observation considered. I considered the following discharge prescriptions or medication management in the emergency department Medications were administered in the Emergency Department. See MAR. Independent interpretation of the following test(s) in the Emergency Department EKG: See my EKG interpretation above. Test considered but Not performed: Ultrasound no 2 d echo. Historians other than the Patient: pt well informed. Care significantly affected by the following chronic conditions: Obesity, Cancer. 10/17 11:22 Order name: Basic Metabolic Panel; Complete Time: 12:31 mb9 10/17 11:22 Order name: CBC with Diff; Complete Time: 12:31 10/17 11:22 Order name: Troponin HS; Complete Time: 12:31 10/17 11:29 Order name: PT-INR; Complete Time: 12:31 esequiel 10/17 11:29 Order name: BNP; Complete Time: 12:31 esequiel 10/17 12:33 Order name: D-Dimer; Complete Time: 13:19 esequiel 10/17 11:22 Order name: XRAY Chest (1 view); Complete Time: 13:19 9 10/17 11:22 Order name: Cardiac monitoring; Complete Time: 13:27 9 10/17 11:22 Order name: EKG - Nurse/Tech; Complete Time: 11:22 9 10/17 11:22 Order name: IV Saline Lock; Complete Time: 11:41 10/17 11:22 Order name: Labs collected and sent; Complete Time: 11:41 10/17 11:22 Order name: O2 Per Protocol; Complete Time: 11:10/17 11:22 Order name: O2 Sat Monitoring; Complete Time: 11:22 mb EC:35 Rate is 65 beats/min. Rhythm is regular. QRS [place] is Normal. [place] interval is normal. QRS esequiel interval is normal. QT interval is normal. No Q waves. T waves are Normal. Clinical impression: Normal ECG and No evidence of ischemia. Interpreted by me. Reviewed by me. Administered Medications: 11:56 Drug: Aspirin PO Chewable Tablet 162 mg PO once Route: PO; as6 13:32 Follow up: Response: No adverse reaction as6 11:56 Drug: NS 0.9% IV 1000 ml IV at 125 ml/hr continuous Route: IV; Rate: 125 ml/hr; Site: as6 right forearm; 13:32 Follow up: Response: No adverse reaction; IV Status: Order to discontinue infusion; IV as6 Intake: 200ml Disposition Summary: 10/18/23 13:19 Discharge Ordered Notes: Location: Home esequiel Problem: new esequiel Symptoms: have improved esequiel Condition: Stable esequiel Diagnosis - Chest pain, unspecified esequiel Followup: esequiel - With: Private Physician - When: 2 - 3 days - Reason: Recheck today's complaints, Continuance of care, Re-evaluation by your physician Followup: esequiel - With: Yazan Arthur MD - When: 2 - 3 days - Reason: Recheck today's complaints, Re-evaluation by your physician Discharge Instructions: - Discharge Summary Sheet esequiel - Nonspecific Chest Pain, Adult esequiel - Nonspecific Chest Pain, Adult, [id number] esequiel - Aspirin and Your Heart esequiel Forms: - Medication Reconciliation Form esequiel - Antibiotic Education esequiel - Prescription Opioid Use esequiel - Patient Portal Instructions esequiel - Leadership Thank You Letter esequiel - Work release form as6 Prescriptions: - Pepcid 20 mg Oral Tablet - take 1 tablet ORAL route every 12 hours for 10 days; 20 tablet; Refills: 0, esequiel Product Selection Permitted Signatures: Dispatcher [employer] EDMS Iain Solomon MD MD cha Slawson, Ashby RN RN as6 Monique Escalante RN RN mb9 Corrections: (The following items were deleted from the chart) 11:23 11:23 BASIC METABOLIC PANEL+C.LAB.BRZ ordered. EDMS EDMS 11:23 11:23 CBC+H.LAB.BRZ ordered. EDMS EDMS 11:23 11:23 Troponin High Sensitivity+C.LAB.BRZ ordered. EDMS EDMS 11:23 11:23 Chest Single View+RAD.RAD.BRZ ordered. EDMS EDMS
[2023-10-18 13:55] VITALS: BP 121/62; TEMP 98.2; O2SAT 97
--- NOTE | 2023-10-19 16:35 | EKG ---
Test Date: 2023-10-18 Test Time: 11:19:16 Branch Officer: TIMBO MEASUREMENT RESULTS: Intervals: Rate: 65 MT: 168 QRSD: 74 QT: 424 QTc: 440 [place]: P: 6 MT: 168 QRS: 32 T: 47 INTERPRETIVE STATEMENTS: Normal sinus rhythm Normal ECG Compared to ECG 12/02/2022 18:32:59 Sinus bradycardia no longer present Electronically Signed On 10-19-23 16:33:17 CDT by Elias Santos
== END 2023-10-18 13:32 | disposition home or self-care (01) ==
LOC: ER 11:08
DX: R07.9 Chest pain, unspecified (principal)
CPT/HCPCS: 36415; 71045; 80048; 83880; 84484; 85025; 85379; 85610; 93005; 96360; 96361; 99284; J7030